=== PATIENT | male | born 1945 | race Caucasian/White ===

== ENCOUNTER 2017-02-01 11:06 | Inpatient (IN) | payer MEDICARE, OTHER ==
--- NOTE | ~2017-02-01 | OP ---
Record Of Operation [facility] [address] [place]. [address] NAME: LADI DILLON : 49 STATUS : ADM IN PAT#: [id number] AGE: 71 ADM/REG DATE : 02/01/17 MR#: [id number] REPORT SERV DATE: 02/05/17 DICTATED BY: IAIN IRAHETA III DATE: 02/05/17 REPORT STATUS : Draft TRANSCRIBED BY: MODL DATE: 02/05/17 DATE OF PROCEDURE: 02/05/2017 PROCEDURE: Cystoscopy, TURBT. PREOPERATIVE DIAGNOSIS: Bladder tumor. POSTOPERATIVE DIAGNOSIS: Bladder tumor ANESTHESIA: General. SURGEON: Iain Iraheta M.D. PROCEDURE IN DETAIL: Following induction of adequate general anesthesia, the patient placed in dorsal lithotomy position, prepped and draped in a sterile fashion. The urethra was normal. The prostate had several small clots. There was no active bleeding. There was one small clot in the bladder which was evacuated. The visualization was excellent. The tumor appeared to begin at approximately 1 o'clock inside the bladder wall and came down to approximately the 4 o'clock position. There was visible tumor on the floor of the bladder, superior to the ureteral orifice. I put the resectoscope in and with pressure was able to reach all but the very most cephalad portion of the tumor with approximately 5 mm from the tip of the lip. With pressure I was able to resect the lip of the tumor and I shaved it down close to but not into the bladder wall. There were some papillary elements on the fringes of the tumor, however, the tumor itself was solid with some necrotic areas. I resected all tissue that looked as if it might bleed, i.e. the papillary portion which had not been resected previously. Hemostasis was excellent. There was a small amount of bleeding at the bladder neck. This was cauterized. A 24 three-way was inserted and irrigated clearly. He tolerated the procedure well. Blood loss was minimal, actually probably less than 150 mL. IMPRESSION: Impression is that of a solid tumor, almost certainly invasive. He will probably require a cystectomy since the tumor was not isolated to the lateral wall. Some of the areas on the base of the bladder were shaved almost to the 6 o'clock position above the left ureteral orifice and what was clearly tumor. OB/MODL Iain Iraheta III, M.D. / [id number] CC: Sulaiman Brown III, PA-C
--- NOTE | ~2017-02-01 | DS ---
Discharge Summary [address] [place]. [address] NAME: LADI DILLON : 49 STATUS : ADM IN [facility]#: [id number] AGE: 71 ADM/REG DATE : 02/01/17 MR#: [id number] REPORT SERV DATE: 02/06/17 DICTATED BY: IAIN IRAHETA III DATE: 02/06/17 REPORT STATUS : Draft TRANSCRIBED BY: MODL DATE: 02/06/17 ADMISSION DATE: 02/01/2017 DISCHARGE DATE: 02/06/2017 DISCHARGE DIAGNOSIS: Clot retention and bladder tumor. PROCEDURE: Clot evacuation and cysto TURBT. HISTORY OF PRESENT ILLNESS: The patient is a 71-year-old, who was referred to al approximately a week before admission. He was having gross hematuria. A CT showed a 5- to 6-cm left bladder mass with no hydronephrosis, no clear-cut adenopathy. He presented on 02/01/2017 bleeding, in pain, and distended. He was brought to [facility] for a clot evacuation. PAST MEDICAL HISTORY: Includes elevated cholesterol, hypothyroidism, and asthma. MEDICATIONS: Crestor, Synthroid, and Tricor. PAST SURGICAL HISTORY: He has had a tonsillectomy. No other surgery. FAMILY HISTORY: Unremarkable. ALLERGIES: HAD NO ALLERGIES. HOSPITAL COURSE: The patient was taken to the operating room and an extensive clot evacuation was done. His prostate was noted to be significantly enlarged and was bleeding by the time the clot evacuation could be completed. Bladder tumor was partially resected, however, bleeding from the prostate forced me to place a 3-way catheter and allow this bleeding to stop. He was given 2 units of packed cells and his hemoglobin came up to approximately [address] The urine cleared. 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 There was some muscle present that was not involved. The tumor actually was quite bulky and some of it appeared solid. On the initial resection, there was an area where the involvement was less extensive, and this had been one area that did bleed significantly during the resection. He was taken back to the operating room on the , visualization was excellent. Due to the lack of bleeding, the tumor was resected into completely solid mass. There was really no distinction between bladder wall and tumor, so I did not try to remove it in its entirety. There were also mucosal changes in the tumor in the urothelium extending toward the base of the bladder; this was resected but unfortunately got mixed in with the tumor specimen itself and was not sent separately. The tumor was pretty much avascular once all the superficial papillary areas were removed, it was with deep palpation I could feel a firmness, but it was mobile, and I could not be sure this was a tumor, certainly it was not fixed. Bleeding was minimal, and on the day of discharge, the urine was clear off CBI, he was comfortable, and felt to be okay for discharge. His creatinine was 1.1. Hemoglobin was 10.3. I explained to the patient that this is going to be invasive cancer. This is a solid sessile mass and would discuss cystectomy and diversion to this to some extent. He will be sent home with this catheter Discharge Summary [address] [place]. [address] NAME: LADI DILLON : 49 STATUS : ADM IN PAT#: [id number] AGE: 71 ADM/REG DATE : 02/01/17 MR#: [id number] REPORT SERV DATE: 02/06/17 DICTATED BY: IAIN IRAHETA III DATE: 02/06/17 REPORT STATUS : Draft TRANSCRIBED BY: MODL DATE: 02/06/17 and will be removed in 48 hours. OB/MODL Iain Iraheta III, M.D. / [id number] CC: Sulaiman Brown III, PA-C
--- NOTE | ~2017-02-01 | OP ---
Record Of Operation [facility] [address] [place]. [address] NAME: LADI DILLON : 49 STATUS : ADM IN PAT#: [id number] AGE: 71 ADM/REG DATE : 02/01/17 MR#: [id number] REPORT SERV DATE: 02/01/17 DICTATED BY: IAIN IRAHETA III DATE: 02/01/17 REPORT STATUS : Draft TRANSCRIBED BY: MODL DATE: 02/01/17 DATE OF PROCEDURE: 02/01/2017 PROCEDURE: Cystoscopy, clot evacuation, and TURBT. PREOPERATIVE DIAGNOSIS: Clot retention and bladder mass. POSTOPERATIVE DIAGNOSIS: Clot retention and bladder mass. ANESTHESIA: General. SURGEON: Iain Iraheta M.D. DESCRIPTION OF PROCEDURE: Following induction of adequate general anesthesia, the patient was placed in the dorsal lithotomy position, prepped and draped in a sterile fashion. The urethra was normal. The prostate was quite large with an upsloping bladder neck and a median lobe. Bladder was full of organized clot. I passed a 25 sheath and immediately got a couple 100 mL of clot. I then switched to Ellik. I then tried to look and simply could not see any bladder mucosa. I continued to irrigate with Ellik and eventually could not pull any more clot out. I did a cystogram and I took a look at it again and there was formed clot in the middle of the bladder. I then placed a 26 and ultimately a 28 sheath and the Ellik simply would not pull the clot out. I tried removing it with the loop but it appeared to be 1 or 2 well-formed congealed clot. I then got a Kwesi hematuria catheter placed in and with that I could get all the way up to the top of the bladder and irrigated for approximately 30 minutes getting quite a bit of clot. Another look in the bladder revealed some loose clot. This was evacuated with a 26 sheath. The prostate was oozing somewhat. The bladder was examined as best I could. The dome was difficult to see the posterior wall. I could see well with the bladder collapsed and the right lateral wall had no tumor. I did not visualize the left ureteral orifice, however, on the CT, it was not covered by the tumor. The tumor appeared to be papillary and solid. There was a good bit of encrustation which was very difficult to resect. Even with a significant amount of pressure on the scope, the loop would not extend to the most cephalad portion of the tumor. There were areas in the tumor that were bleeding and I felt I needed to resect those rather than simply fulgurate, so I resected the mid portion of the tumor. I did not try to get to the bladder wall since the tumor looks solid. There were several significant bleeders high on the distal portion of the tumor. I could not really tell if I was looking the bladder wall or tumor and scraped off some of the clot and fulgurated these heavily. All the clots and chips were evacuated. I then observed the tumor for 5 to 10 minutes. There was only really an ooze from the prostate. The bleeding areas were well coagulated. Unfortunately I could not reach the majority of the tumor and with the prostate bleeding more from multiple manipulations, I felt it best to place a catheter, put the catheter on traction and possibly take a second look first part of the week. A 24 Kwesi catheter was placed, it irrigated clear to light pink and he was placed on a 3/4 drip which produced a light pink color. When he awoke, he strained and the urine got lightly darker; however, it stopped fairly quickly and when he left for the recovery room, it was a light pink. He tolerated the procedure well. He received 1 unit of blood and the hemoglobin will be checked in the recovery room. Record Of Operation [address] [place]. [address] NAME: LADI DILLON : 49 STATUS : ADM IN [facility]#: [id number] AGE: 71 ADM/REG DATE : 02/01/17 MR#: [id number] REPORT SERV DATE: 02/01/17 DICTATED BY: IAIN IRAHETA III DATE: 02/01/17 REPORT STATUS : Draft TRANSCRIBED BY: MODL DATE: 02/01/17 OB/MODL Iain Iraheta III, M.D. / [id number] CC: Sulaiman Brown III, PA-C
[2017-02-01 12:00] LABS: BASOPHILS 0.1 %; BASOPHILS ABSOLUTE 0.01 10/3/uL (0.0-0.16); EOSINOPHILS 0.3 %; EOSINOPHILS ABSOLUTE 0.05 10/3/uL (0.0-0.53); HEMATOCRIT 30.4 % (40.0-51.0); HEMOGLOBIN 10.4 g/dL (13.6-17.8); IMMATURE GRANULOCYTES 0.3 %; IMMATURE GRANULOCYTES ABSOLUTE 0.04 10/3/uL (0.0-0.11); LYMPHOCYTES 10.5 %; LYMPHOCYTES ABSOLUTE 1.56 10/3/uL (0.67-4.30); MEAN CORPUS HGB CONC 34.2 g/dL (32.0-36.0); MEAN CORPUSCULAR VOLUME 87.6 fL (80-100); MEAN PLATELET VOLUME 8.3 fL (9.2-13.0); MONOCYTES 9.9 %; MONOCYTES ABSOLUTE 1.48 10/3/uL (0.21-1.20); NEUTROPHILS 78.9 %; NEUTROPHILS ABSOLUTE 11.78 10/3/uL (2.02-8.40); PLATELET COUNT 318 10/3/uL (150-400); RBC DISTRIBUTION WIDTH 13.9 % (12.0-16.0); RED CELL COUNT 3.47 10/6/uL (4.7-6.1); WHITE BLOOD CELLS 14.9 10/3/uL (4.5-10.5)
[2017-02-01 12:02] LABS: MANUAL DIFF NO %
[2017-02-01 12:23] LABS: BUN (BLOOD UREA NITROGEN) 23 MG/DL (6-23); CALCIUM, SERUM 9.3 MG/DL (8.5-10.4); CHLORIDE, SERUM 104 MMOL/L (96-112); CO2 (CARBON DIOXIDE) 26 MMOL/L (24-34); GFR AFRICAN AMERICAN 46 ML/MIN (>=60); GFR NON AFRICAN AMERICAN 40 ML/MIN (>=60); GLUCOSE, SERUM 178 MG/DL (60-99); POTASSIUM, SERUM 4.3 MMOL/L (3.5-5.3); SODIUM, SERUM 140 MMOL/L (135-148)
[2017-02-01 12:24] LABS: CREATININE 1.71 MG/DL (0.70-1.30)
[2017-02-01] MEDS ORDERED: LEVAQUIN5T PO (12:35)
[2017-02-01] MEDS ORDERED: *DENIES (12:36)
[2017-02-01 19:16] LABS: HEMATOCRIT 28.5 % (40.0-51.0)
[2017-02-01 19:28] LABS: BUN (BLOOD UREA NITROGEN) 25 MG/DL (6-23); CHLORIDE, SERUM 102 MMOL/L (96-112); CO2 (CARBON DIOXIDE) 24 MMOL/L (24-34); CREATININE 1.43 MG/DL (0.70-1.30); GFR AFRICAN AMERICAN 58 ML/MIN (>=60); GFR NON AFRICAN AMERICAN 50 ML/MIN (>=60); GLUCOSE, SERUM 213 MG/DL (60-99); POTASSIUM, SERUM 4.4 MMOL/L (3.5-5.3); SODIUM, SERUM 135 MMOL/L (135-148)
[2017-02-01 19:30] LABS: CALCIUM, SERUM 8.1 MG/DL (8.5-10.4)
[2017-02-02 05:42] LABS: BASOPHILS 0 %; EOSINOPHILS 0 %; HEMOGLOBIN 9.7 g/dL (13.6-17.8); IMMATURE GRANULOCYTES 0.3 %; IMMATURE GRANULOCYTES ABSOLUTE 0.03 10/3/uL (0.0-0.11); LYMPHOCYTES 5.9 %; LYMPHOCYTES ABSOLUTE 0.64 10/3/uL (0.67-4.30); MEAN CORPUS HGB CONC 34.6 g/dL (32.0-36.0); MEAN CORPUSCULAR HEMOGLOB 30.1 pg (26.0-34.0); MEAN PLATELET VOLUME 8.2 fL (9.2-13.0); MONOCYTES 6.4 %; MONOCYTES ABSOLUTE 0.69 10/3/uL (0.21-1.20); NEUTROPHILS 87.4 %; NEUTROPHILS ABSOLUTE 9.45 10/3/uL (2.02-8.40); PLATELET COUNT 244 10/3/uL (150-400); RBC DISTRIBUTION WIDTH 14.2 % (12.0-16.0); RED CELL COUNT 3.22 10/6/uL (4.7-6.1); WHITE BLOOD CELLS 10.8 10/3/uL (4.5-10.5)
[2017-02-02 05:43] LABS: MANUAL DIFF NO %
[2017-02-02 05:52] LABS: BUN (BLOOD UREA NITROGEN) 22 MG/DL (6-23); CALCIUM, SERUM 8.2 MG/DL (8.5-10.4); CHLORIDE, SERUM 106 MMOL/L (96-112); CO2 (CARBON DIOXIDE) 26 MMOL/L (24-34); GFR AFRICAN AMERICAN 71 ML/MIN (>=60); GFR NON AFRICAN AMERICAN 61 ML/MIN (>=60); GLUCOSE, SERUM 180 MG/DL (60-99); POTASSIUM, SERUM 4.2 MMOL/L (3.5-5.3); SODIUM, SERUM 140 MMOL/L (135-148)
[2017-02-03 06:26] LABS: BASOPHILS 0.1 %; BASOPHILS ABSOLUTE 0.01 10/3/uL (0.0-0.16); EOSINOPHILS 1.2 %; HEMATOCRIT 27.9 % (40.0-51.0); HEMOGLOBIN 9.5 g/dL (13.6-17.8); IMMATURE GRANULOCYTES 0.3 %; IMMATURE GRANULOCYTES ABSOLUTE 0.03 10/3/uL (0.0-0.11); LYMPHOCYTES 20.2 %; LYMPHOCYTES ABSOLUTE 1.74 10/3/uL (0.67-4.30); MEAN CORPUS HGB CONC 34.1 g/dL (32.0-36.0); MEAN CORPUSCULAR HEMOGLOB 29.9 pg (26.0-34.0); MEAN CORPUSCULAR VOLUME 87.7 fL (80-100); MEAN PLATELET VOLUME 8.3 fL (9.2-13.0); MONOCYTES 8.3 %; MONOCYTES ABSOLUTE 0.71 10/3/uL (0.21-1.20); NEUTROPHILS 69.9 %; NEUTROPHILS ABSOLUTE 6.01 10/3/uL (2.02-8.40); PLATELET COUNT 240 10/3/uL (150-400); RBC DISTRIBUTION WIDTH 14.4 % (12.0-16.0); RED CELL COUNT 3.18 10/6/uL (4.7-6.1); WHITE BLOOD CELLS 8.6 10/3/uL (4.5-10.5)
[2017-02-03 06:29] LABS: MANUAL DIFF NO %
[2017-02-03 06:35] LABS: BUN (BLOOD UREA NITROGEN) 15 MG/DL (6-23); CALCIUM, SERUM 7.8 MG/DL (8.5-10.4); CHLORIDE, SERUM 110 MMOL/L (96-112); CO2 (CARBON DIOXIDE) 27 MMOL/L (24-34); CREATININE 1.05 MG/DL (0.70-1.30); GFR AFRICAN AMERICAN 84 ML/MIN (>=60); GFR NON AFRICAN AMERICAN 72 ML/MIN (>=60); GLUCOSE, SERUM 126 MG/DL (60-99); POTASSIUM, SERUM 3.7 MMOL/L (3.5-5.3); SODIUM, SERUM 145 MMOL/L (135-148)
[2017-02-05 06:25] LABS: HEMATOCRIT 31.4 % (40.0-51.0); HEMOGLOBIN 10.7 g/dL (13.6-17.8)
[2017-02-06 05:03] LABS: BASOPHILS 0 %; EOSINOPHILS 0 %; HEMATOCRIT 30.4 % (40.0-51.0); HEMOGLOBIN 10.3 g/dL (13.6-17.8); IMMATURE GRANULOCYTES 0.2 %; IMMATURE GRANULOCYTES ABSOLUTE 0.02 10/3/uL (0.0-0.11); LYMPHOCYTES 5.8 %; MEAN CORPUS HGB CONC 33.9 g/dL (32.0-36.0); MEAN CORPUSCULAR HEMOGLOB 29.6 pg (26.0-34.0); MEAN CORPUSCULAR VOLUME 87.4 fL (80-100); MEAN PLATELET VOLUME 8.4 fL (9.2-13.0); MONOCYTES 3.8 %; MONOCYTES ABSOLUTE 0.33 10/3/uL (0.21-1.20); NEUTROPHILS 90.2 %; NEUTROPHILS ABSOLUTE 7.81 10/3/uL (2.02-8.40); RBC DISTRIBUTION WIDTH 13.6 % (12.0-16.0); RED CELL COUNT 3.48 10/6/uL (4.7-6.1); WHITE BLOOD CELLS 8.7 10/3/uL (4.5-10.5)
[2017-02-06 05:04] LABS: MANUAL DIFF NO %; PLATELET COUNT 336 10/3/uL (150-400)
[2017-02-06 05:07] LABS: CALCIUM, SERUM 8.3 MG/DL (8.5-10.4); CHLORIDE, SERUM 104 MMOL/L (96-112); CO2 (CARBON DIOXIDE) 26 MMOL/L (24-34); CREATININE 1.11 MG/DL (0.70-1.30); GFR AFRICAN AMERICAN 78 ML/MIN (>=60); GFR NON AFRICAN AMERICAN 67 ML/MIN (>=60); SODIUM, SERUM 139 MMOL/L (135-148)
[2017-02-06 05:10] LABS: BUN (BLOOD UREA NITROGEN) 11 MG/DL (6-23); GLUCOSE, SERUM 264 MG/DL (60-99)
[2017-02-06] MEDS ORDERED: NORCO1 TA1 PO (09:14)
[2017-05-20] MEDS ORDERED: *DENIES (06:28)
[2017-05-25] MEDS ORDERED: K500 PO (09:14)
[2017-05-28] MEDS ORDERED: [UNRECOGNIZED DRUG - OTHER] PO (14:39)
[2017-06-18] MEDS ORDERED: NORCO1 TA1 PO (13:19)
== END 2017-02-06 12:17 | disposition home or self-care (01) | DRG 669 ==
LOC: 4SO 11:06
PROVIDERS: Urology
DX: C67.3 Malignant neoplasm of anterior wall of bladder (principal); N13.8 Other obstructive and reflux uropathy; K21.9 Gastro-esophageal reflux disease without esophagitis; J45.909 Unspecified asthma, uncomplicated; E03.9 Hypothyroidism, unspecified; N40.0 Benign prostatic hyperplasia without lower urinary tract symptoms; Z79.82 Long term (current) use of aspirin; E78.5 Hyperlipidemia, unspecified; G47.33 Obstructive sleep apnea (adult) (pediatric); E78.00 Pure hypercholesterolemia, unspecified; K59.00 Constipation, unspecified
CPT/HCPCS: 36415; 71020; 80048; 85014; 85018; 85025; 86850; 86900; 86901; 86920; 88307; 93005; A9270-GY; J0290; J2250; J2270; J2370; J2405; J2710; J3010; P9016; Q9967

== ENCOUNTER 2017-02-09 06:08 | Inpatient (IN) | payer MEDICARE, OTHER ==
--- NOTE | ~2017-02-09 | DS ---
Discharge Summary [facility] [address] [place]. [address] NAME: LADI DILLON : 49 STATUS : DIS IN PAT#: [id number] AGE: 71 ADM/REG DATE : 02/10/17 MR#: [id number] REPORT SERV DATE: 02/22/17 DICTATED BY: SWAPNIL GARCIA DATE: 02/21/17 REPORT STATUS : Draft TRANSCRIBED BY: MODJoel DATE: 02/21/17 Data Collection from hospitalization DISCHARGE DIAGNOSES: 1. Bladder cancer. 2. Hypercholesterolemia. 3. Hypothyroidism. 4. Asthma. 5. Hematuria. CONSULTATIONS: Dr. Eugenio Dalal, Dr. Nikolai Guillaume. PROCEDURES PERFORMED: 1. CT kidney stone protocol, 02/09/2017. 2. CT cystogram, 02/09/2017. 3. CT of the abdomen and pelvis without contrast, 02/10/2017. 4. Ileal conduit formation with ileoileostomy, 02/12/2017. 5. Laparoscopic robot assisted radical cystoprostatectomy, 02/12/2017. PATHOLOGY: 1. Fluid from cul-de-sac for cytology, ThinPrep, negative for malignancy. 2. Left ureter excision, no dysplasia or carcinoma seen, margin free. Right ureter excision, no dysplasia or carcinoma seen, margin free. Bladder and prostate cystoprostatectomy, bladder invasive urothelial carcinoma. Prostate and seminal vesicles, prostatic acinar adenocarcinoma. Left pelvic lymph nodes excision, one lymph node free of tumor. Right pelvic lymph nodes excision, one lymph node free of tumor. Left ureter excision, no dysplasia or carcinoma seen. Right ureter excision, no dysplasia or carcinoma seen. MEDICATIONS: [place] 5/325 one every four hours as needed. CONDITION AT DISCHARGE: Upon discharge, he did appear to be doing well and had no complaints. DISPOSITION: He was discharged home to continue a regular diet with activity as discussed. He was to call my office for a followup appointment. Home health care was in place upon discharge. HOSPITAL COURSE: This 71-year-old male was a patient of Dr. Iain Boothe. He had recently been diagnosed with high-volume, high-grade muscle invasive bladder cancer. Ultimately, a cystectomy was planned. He had had two TURBT and clot evacuation procedures in the last week. This second was performed on 02/05/2017, again large volume of bladder tumor was noted here. He was actually discharged with the Garcia catheter at that time and his catheter was removed in Dr. Carver's office on the day prior to admission. Following removal of the catheter, he was able to void reasonably well, but then developed debilitating pelvic and abdominal pain and felt ill. Ultimately, he was brought to the emergency room on the day of admission with these complaints. He denied any fever at home. He denied any nausea or vomiting at home. On arrival to the emergency room, he was found to Discharge [address] [address] NAME: LADI DILLON : 49 STATUS : DIS IN PAT#: [id number] AGE: 71 ADM/REG DATE : 02/10/17 MR#: [id number] REPORT SERV DATE: 02/22/17 DICTATED BY: SWAPNIL GARCIA DATE: 02/21/17 REPORT STATUS : Draft TRANSCRIBED BY: MODJoel DATE: 02/21/17 have an elevated white count of 16 and dirty-appearing urine and noncontrast CT of the abdomen and pelvis was performed, which showed some fluid in the retroperitoneal space with fluid and air bubbles along the right and superior to the bladder as well. The bladder itself was asymmetric with a suggestion of an infiltrating bladder wall mass, primarily extraperitoneal fluid, extravasations was noted. Following this, a CT cystogram was obtained, which showed a small bladder perforation on the right side anteriorly with minimal extravasation of air and contrast into the retroperitoneum, extravascular space only. In light of these findings, he was admitted for supportive care and further treatment. Upon admission to the hospital, he had been placed on an n.p.o. diet. He was begun on Dilaudid at 0.5-1 mg IV every two hours as needed and Zofran 4 mg IV every four hours as needed. He did undergo the above CT kidney stone protocol as well as CT cystogram while in the emergency room. Following the day of admission, he had a temperature of 100.2. He did state that he had felt constipated. His vital signs were stable. His abdomen was noted to be soft with some very mild tenderness in the right lower and right upper quadrant. His urine looked clear. He was continued on Levaquin and also begun on vancomycin. He was placed on Dulcolax as well as Colace. He did undergo the above CT of the abdomen and pelvis without contrast. On 02/11/2017, he did appear to be comfortable and his urine had remained clear. I initially saw the patient on 02/11/2017 and a laparoscopic robotic assisted radical cystoprostatectomy with ileal conduit was recommended. Neoadjuvant chemotherapy and urinary diversion types were discussed with the patient, and because his recent perforation was now clinically stable, it was recommended he proceed straight to surgery, not to neoadjuvant chemotherapy. He had also been seen prior to surgery by Dr. Nikolai Guillaume. He was to be available for the urinary conduit formation. He discussed the risks and benefits with the patient as well and the patient was agreeable to proceed. On 02/12/2017, he had been taken to the operating room by myself and Dr. Nikolai Guillaume, where he did undergo the above procedure. He tolerated this well and was transferred to the recovery room. On postop day 1, he was afebrile and his vital signs were stable. He did have some complaints of abdominal pain. He did have a good appetite and his wound looked good. His diet was being slowly advanced. On postop day #2, he continued to do well and had no new complaints. IV fluids were discontinued as were antibiotics. On postop day 3, he had a temperature of 99, and his vital signs had remained stable. His drain site was noted to be leaking. He did continue in stable condition, and as he continued to do well, he was then discharged on 02/16/2017 with the above instructions. Information collected by: Jane LeonIGopalT. I submit the above information as my discharge summary. LUIZ/MARGOT Swapnil Garcia M.D. / [id number] CC: Sulaiman Brown III, PA-C Discharge Summary [address] [address] NAME: LADI DILLON : 49 STATUS : DIS IN PAT#: [id number] AGE: 71 ADM/REG DATE : 02/10/17 MR#: [id number] REPORT SERV DATE: 02/22/17 DICTATED BY: SWAPNIL GARCIA DATE: 02/21/17 REPORT STATUS : Draft TRANSCRIBED BY: MARGOT DATE: 02/21/17 Nikolai Guillaume M.D.
--- NOTE | ~2017-02-09 | OP ---
Record Of Operation [facility] [address] [place]. [address] NAME: LADI DILLON : 49 STATUS : ADM IN PAT#: [id number] AGE: 71 ADM/REG DATE : 02/10/17 MR#: [id number] REPORT SERV DATE: 02/12/17 DICTATED BY: NIKOLAI WOODARD DATE: 02/12/17 REPORT STATUS : Draft TRANSCRIBED BY: MODL DATE: 02/12/17 DATE OF PROCEDURE: 02/12/2017 PREOPERATIVE DIAGNOSIS: Bladder cancer with perforation and hematuria. POSTOPERATIVE DIAGNOSIS: Bladder cancer with perforation and hematuria. PROCEDURE: Ileal conduit formation with ileoileostomy. SURGEON: Nikolai Woodard M.D. ASSISTANTS: Dr. Kidd and Isauro. COMPLICATIONS: None. DRAINS: None. ESTIMATED BLOOD LOSS: 20 mL. OPERATIVE TECHNIQUE: The patient had a previous cysto prostatectomy robotically and the patient's abdomen was then opened under the direction of Dr. Kidd. At that time, exploratory laparotomy revealed no adhesions of the ileum and the small bowel was identified at the cecal junction and approximately 12-15 cm proximally, a mesenteric rent was made in the mesenteric border using electrocautery. The mesentery was divided perpendicularly under direct visualization with electrocautery through the mesentery and the vessels were divided with the LigaSure as they were encountered. Approximately 10 cm, the mesentery was divided on the distal segment. At this point, about 18 cm was measured proximally and an additional mesenteric rent was obtained in the mesentry. At this point, the GORDO stapler was used to divide the intervening segment which was allowed to drop into the pelvis with a 75 mm linear stapler. It was marked with sutures for both distal ileoileostomy and for the conduit. At this point, the two small bowel segments were reanastomosed with a 75 mm stapler. The bowel ends were reapproximated and the enterotomies were made, and the stapler was inserted and positioned with the full length of a 75 mm stapler. It was then fired and the staple line was oversewn with interrupted 3-0 Lembert sutures prior to removal. The anastomosis was noted to be widely patent and Allis clamps were used only at the bowel and closed the ileoileostomy common channel with a 75 mm stapler. The suture line was oversewn with interrupted 3-0 Lembert sutures. It was widely patent and the mesenteric defect was left intact until the ureters were reimplanted. The intervening conduit segment was viable at which time, Dr. Kidd resumed the procedure. He tolerated this portion of the procedure well. MARIE/MARGOT Nikolai Record Of Operation [place] [id number] [facility] [address] NAME: LADI DILLON : 49 STATUS : ADM IN [facility]#: [id number] AGE: 71 ADM/REG DATE : 02/10/17 MR#: [id number] REPORT SERV DATE: 02/12/17 DICTATED BY: INKOLAI WOODARD DATE: 02/12/17 REPORT STATUS : Draft TRANSCRIBED BY: MARGOT DATE: 02/12/17 Sulaiman Woodard / [id number] CC: Sulaiman Brown III, PA-C
--- NOTE | ~2017-02-09 | CN ---
Consultation Report [facility] [address] [place]. [address] NAME: LADI DILLON : 49 STATUS : ADM IN [facility]#: [id number] AGE: 71 ADM/REG DATE : 02/10/17 MR#: [id number] REPORT SERV DATE: 02/12/17 DICTATED BY: NIKOLAI WOODARD DATE: 02/11/17 REPORT STATUS : Draft TRANSCRIBED BY: MODL DATE: 02/11/17 SURGICAL CONSULTATION DATE OF CONSULTATION: 02/11/2017 HISTORY OF PRESENT ILLNESS: This is a 71-year-old gentleman has had hematuria that did not respond to outpatient antibiotic therapy. He was recently evaluated in the emergency department with progressive hematuria, and was noted to have a high-volume, high-grade muscle invasive bladder cancer. A cystectomy is planned. He has had two clot evacuation procedures in the past week at which time, he was noted to have the tumor. He was followed outpatient and had a catheter that was removed prior to his admission on 02/09/2017. After removal, he was unable to void, and he was subsequently admitted to the hospital and was noted to have leukocytosis with a CT scan that revealed infiltrating bladder wall mass with fluid in the retroperitoneal space of air bubbles along the right superior aspect of the bladder consistent with perforation. Cystogram confirmed this. I was asked to see the patient for assistance with urinary conduit formation for his surgery planned tomorrow. PAST MEDICAL HISTORY: Hypothyroidism, hypercholesterolemia, and asthma. MEDICATIONS: He states he does not take any medications but Synthroid, Crestor, and TriCor is reported. SURGICAL HISTORY: No previous abdominal surgery. ALLERGIES: NO KNOWN DRUG OR LATEX ALLERGIES. SOCIAL HISTORY: The patient denies alcohol, tobacco, or illicit drug usage. 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 FAMILY HISTORY: Negative for bladder or urinary cancer. Family history of hypertension. REVIEW OF SYSTEMS: No headache, blurred vision, dizziness, chest pain, shortness of breath, cough, dyspnea on exertion, syncope, palpitations, jaundice, itching, bright red blood per rectum, or melena. He does have a hematuria. PHYSICAL EXAMINATION: GENERAL: Obese male, in no apparent distress. NECK: Supple. No adenopathy. CARDIOVASCULAR: Regular rate and rhythm without murmur. RESPIRATORY: Clear to auscultation. ABDOMEN: Soft, nondistended, and non-tender. No masses. BACK: No CVA tenderness. EXTREMITIES: No clubbing, cyanosis, edema. Consultation Report [place] [id number] [place]. [address] NAME: LADI DILLON : 49 STATUS : ADM IN PAT#: [id number] AGE: 71 ADM/REG DATE : 02/10/17 MR#: [id number] REPORT SERV DATE: 02/12/17 DICTATED BY: NIKOLAI WOODARD DATE: 02/11/17 REPORT STATUS : Draft TRANSCRIBED BY: MARGOT DATE: 02/11/17 SKIN: No jaundice. ASSESSMENT: 1. Bladder cancer with leak. 2. Obesity. PLAN: We will be available for urinary conduit formation. I discussed the potential for bleeding, infection, and the need for further surgical intervention, and he wished to proceed. He has previously discussed the risks, benefits, and alternatives of cystectomy with Dr. Kidd. /MARGOT Nikolai Woodard M.D. / [id number] CC: Sulaiman Brown III, PA-C Donald Hartsfield, D.O.
--- NOTE | ~2017-02-09 | CN ---
Consultation Report [facility] [address] [facility] [place]. [address] NAME: LADI BARAJAS : 49 STATUS : ADM IN PAT#: [id number] AGE: 71 ADM/REG DATE : 02/10/17 MR#: [id number] REPORT SERV DATE: 02/11/17 DICTATED BY: SWAPNIL GARCIA DATE: 02/11/17 REPORT STATUS : Draft TRANSCRIBED BY: MODL DATE: 02/11/17 CONSULTATION DATE OF CONSULTATION: 02/11/2017 REASON FOR CONSULTATION: Invasive bladder cancer. IMPRESSION: 1. 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 2. Bladder perforation. RECOMMENDATIONS: Laparoscopic robot-assisted radical cystoprostatectomy with ileal conduit. I discussed neoadjuvant chemotherapy and I discussed urinary diversion types. Because of the recent perforation which is now clinically stable I would proceed straight to surgery not to neoadjuvant chemotherapy. The patient is not interested in a continent diversion. DISCUSSION: Mr. Barajas is a 71-year-old male who had a transurethral resection of a bladder tumor, which was high grade invasive and large volume. He developed postoperative urinary retention, hematuria, and recently was diagnosed with a perforation on the right lateral wall. It is an extraperitoneal perforation. Pathology report given to me by Dr. Carver was of a high-grade invasive TCC. The patient is clinically doing well. He is hungry. He is n.p.o. He had low-grade temperature recently. He is on antibiotics. PAST MEDICAL HISTORY: Negative. MEDICATIONS: Levaquin. SOCIAL HISTORY: He denies drug, alcohol, or tobacco abuse. PHYSICAL EXAMINATION: GENERAL: Shows a well-developed, well-nourished white male, in no acute distress. VITAL SIGNS: He is presently afebrile. His vital signs are stable. HEENT: Sclerae anicteric. NECK: Supple. LUNGS: Clear. HEART: Regular rate and rhythm. ABDOMEN: Soft, nontender. No palpable abdominal masses. No hepatosplenomegaly. : Penis has a catheter in place. No inguinal hernia. Testes are descended. Nontender. No masses. LOWER EXTREMITY: No deformities. STUDIES: White blood cell count was 18,000, hemoglobin was 9.6, hematocrit 28. Creatinine 0.93. I reviewed the CT scan done yesterday. Consultation Report [address] [address] NAME: LADI BARAJAS : 49 STATUS : ADM IN PAT#: [id number] AGE: 71 ADM/REG DATE : 02/10/17 MR#: [id number] REPORT SERV DATE: 02/11/17 DICTATED BY: SWAPNIL GARCIA DATE: 02/11/17 REPORT STATUS : Draft TRANSCRIBED BY: MODJoel DATE: 02/11/17 PF/MARGOT Swapnil Garcia M.D. / [id number] CC: Sulaiman Brown III, PA-C
--- NOTE | ~2017-02-09 | HP ---
History And Physical [facility] [address] [place]. [address] NAME: LADI DILLON : 49 STATUS : DIS IN PAT#: [id number] AGE: 71 ADM/REG DATE : 02/10/17 MR#: [id number] REPORT SERV DATE: 02/25/17 DICTATED BY: LENA BOOTH DATE: 02/09/17 REPORT STATUS : Draft TRANSCRIBED BY: MODL DATE: 02/09/17 DATE OF ADMISSION: 02/09/2017 HISTORY: This is a 71-year-old white male, who is a patient of Dr. Iain Carver. He has recently been diagnosed with high-volume, high-grade, muscle-invasive bladder cancer. Ultimately, a cystectomy is planned. He has had two TURBT and clot evac procedures in the last week. The second was performed on 02/05/2017, again large volume of bladder tumor was noted here. He was actually discharged with a Kidd catheter at that time, and his catheter was removed yesterday in Dr. Carver's office. Following removal of the catheter, he was able to void reasonably well but developed debilitating pelvic and abdominal pain and felt ill. Ultimately he was brought to the emergency room early this morning with these complaints. He denied any fevers at home. Denied any nausea or vomiting at home. On arrival in the emergency room, he was found to have an elevated white count of 16 and dirty- appearing urine. A noncontrast CT of the abdomen and pelvis was performed, which showed some fluid in the retroperitoneal space with fluid and air bubbles along the right and superior to the urinary bladder as well. The bladder itself was asymmetric with a suggestion of an infiltrating bladder wall mass. Primarily, extraperitoneal fluid extravasation was noted. Following this, a CT cystogram was obtained, which showed a small bladder perforation on the right side anteriorly with minimal extravasation of air and contrast into the retroperitoneum/extravesical space only. In light of the above findings, the patient has been admitted for supportive care. OTHER MEDICAL HISTORY: Includes hypercholesterolemia, hypothyroidism, and asthma. MEDICATIONS: Home medications were previously charted to include Synthroid, Crestor, and Tricor. SURGICAL HISTORY: Includes only remote tonsillectomy. ALLERGIES: HE HAS NO ALLERGIES. PHYSICAL EXAMINATION: GENERAL: He is a very pleasant, white male, no distress, alert, oriented, and conversive. VITAL SIGNS: He is afebrile, blood pressure is 170/76, pulse is 60. HEENT: Pupils equal, round, and reactive. Extraocular movements intact. Oropharynx clear. NECK: Supple. No adenopathy. LUNGS: Clear. HEART: Regular. ABDOMEN: Soft. The bladder is not palpable. There is mild tenderness in the suprapubic region and both lower quadrants, right greater than left. There is very mild discomfort to right back on palpation. He says this is all improved. GENITOURINARY: A Kidd catheter was inserted this morning and he has had 750 mL of output. Penis is normal with a Kidd catheter indwelling. The urine is clear appearing. Testes, epididymitis, spermatic cords, and scrotum are all normal. Prostate was not examined. EXTREMITIES: No cyanosis or edema. History And Physical [address] [address] NAME: LADI DILLON : 49 STATUS : DIS IN PAT#: [id number] AGE: 71 ADM/REG DATE : 02/10/17 MR#: [id number] REPORT SERV DATE: 02/25/17 DICTATED BY: LENA BOOTH DATE: 02/09/17 REPORT STATUS : Draft TRANSCRIBED BY: MARGOT DATE: 02/09/17 LABORATORY VALUES: Urinalysis showed greater than 180 red cells and 65 white cells per high- power field. BUN and creatinine are 20 and 1.55 respectively. Liver functions are normal. Alkaline phosphatase is 102, white cell count 16.1, H and H 10.7 and 32.1, platelet count 339. Pathology from recent surgeries was reviewed revealing high-grade, muscle-invasive urothelial carcinoma. IMPRESSION: 1. High-grade, muscle-invasive, large-volume bladder cancer status post TURBT x2 in the last week or so. 2. Bladder rent with extravesical extravasation of urine into the perivesical and retroperitoneal space. On CT cystogram, only a small amount of extravasation was noted into the perivesical space and no intraperitoneal extravasation was noted. 3. Possible urinary tract infection. 4. Recent enterococcus urinary tract infection. 5. Abdominal and pelvic pain. Greatly improved following Kidd catheter placement. PLAN: We will admit for observation, supportive care, serial labs, etc. We will leave his Kidd in place and see how he does clinically. We will check a urine culture. We will go ahead and start antibiotic coverage with Levaquin. Hopefully, his bladder rent will close spontaneously with bladder decompression. JAKE/MARGOT Lena Booth M.D. / [id number] CC: Iain Carver III, M.D.
--- NOTE | ~2017-02-09 | OP ---
Record Of Operation [facility] [address] [place]. [address] NAME: LADI BARAJAS : 49 STATUS : ADM IN PAT#: [id number] AGE: 71 ADM/REG DATE : 02/10/17 MR#: [id number] REPORT SERV DATE: 02/13/17 DICTATED BY: SWAPNIL GARCIA DATE: 02/12/17 REPORT STATUS : Draft TRANSCRIBED BY: MODL DATE: 02/12/17 DATE OF PROCEDURE: 02/12/2017 PREOPERATIVE DIAGNOSIS: Transitional cell carcinoma of the bladder, clinical stage T2 Nx Mx. OTHER DIAGNOSIS: Bladder perforation, duration unknown. PROCEDURES: 1. Laparoscopic robot-assisted radical cystoprostatectomy. 2. Ileal conduit. SURGEON: Swapnil Garcia M.D. BSA/AML COMPLIANCE OFFICER: Rocky Gray. ANESTHESIA: General and TAP block. Please note, Dr. Nikolai Guillaume harvested the small bowel and did the ileo-ileal anastomosis. ESTIMATED BLOOD LOSS: 300 mL. FLUID REPLACEMENT: 2 L of crystalloid. DRAINS: 15 mm Masoud drain in the pelvis and a 6-Mauritian externalized urinary diversion stents. INDICATION: Mr. Barajas is a 71-year-old male with invasive bladder cancer. He was also had a recent bladder perforation. FINDINGS: Abscess in the right retroperitoneal space, tracking up along next to the right ureter with some purulence. The patient also had a perforated bladder at the right posterolateral wall. TECHNIQUE: The patient was identified, brought to the operating room, administered general anesthetic agent by the Anesthesia Service, intubated. He was positioned into the dorsal lithotomy position, appropriately padded, and secured to the table. The abdomen had previously been clipped. The entire abdomen, penis, groin, scrotum, and perineum were prepped and draped in the usual sterile fashion. A 16-Mauritian Garcia catheter was passed into the bladder and left for drainage. A 3-cm skin incision was made above the umbilicus and carried down through subcutaneous tissue to expose the rectus fascia. The Chas technique was used to introduce a balloon trocar into the peritoneal space. A pneumoperitoneum was created. The abdominal pressure raised to 15 mmHg and held there through the entire case until otherwise specified. I then placed robot arm port at the marking spot of the ileal conduit in the right lateral quadrant. I put two robot arm ports in the left lower quadrant, 12-mm catering assistant port in the right lower quadrant, and a 5-mm catering assistant port in the Record Of Operation [address] [place]. [address] NAME: LADI BARAJAS : 49 STATUS : ADM IN PAT#: [id number] AGE: 71 ADM/REG DATE : 02/10/17 MR#: [id number] REPORT SERV DATE: 02/13/17 DICTATED BY: SWAPNIL GARCIA DATE: 02/12/17 REPORT STATUS : Draft TRANSCRIBED BY: MODL DATE: 02/12/17 right upper quadrant. Once all ports were in position, da Jodie robot was brought to the table and mated to the ports. I began by mobilizing the sigmoid colon. I incised the avascular line with line of Toldt and mobilized the sigmoid colon off the retroperitoneum. There was quite a bit of dense and edematous soft tissue. The posterior perineum was quite thickened. There was actually some fluid down in the cul-de-sac. This was taken up with a trocar with a syringe and it was sent for cytology. I opened the posterior perineum and exposed the left and right ureters all the way down to the superior vesicle pedicles. I then incised the peritoneum just lateral to the median umbilical ligaments on each side, all the way to the vasa deferentia bilaterally. I mobilized the bladder off the anterior abdominal wall and lateral pelvic side wall. This was where I encountered the abscess. The obturator nerves were identified. I opened the cul-de-sac and exposed the seminal structures. The blood supply of the seminal vesicles were secured with locking clips and divided. The superior vesical pedicle was secured with locking clips and then divided. I opened the Denonvilliers fascia, swept the rectum off the undersurface of the prostate. I then took the obliterated umbilical ligaments and the vasa deferentia with locking clips and divided. I then used the laparoscopic GORDO stapling device, stapled along the pedicles of the bladder all the way out to the posterior pedicles of the prostate. I then divided the median umbilical ligaments and urachus near the umbilicus. I dissected out in the space of Retzius. I opened the endopelvic fascia along the prostate sharply. I took out all the way out to the puboprostatic ligaments bilaterally. The dorsal venous complex was isolated and secured with laparoscopic GORDO stapling device. I oversewed the dorsal venous complex with 0 PDS. The urethra was isolated and divided sharply. A posterior striated sphincter was divided sharply. Last attachments of the prostate to the neurovascular bundles were taken off sharply. The specimen was now completely freed up. It was placed in a specimen retrieval bag and held for later retrieval. Lower the abdominal pressure down to 7 mmHg and held it there for 5 minutes. I irrigated the pelvis copiously and sucked it dry. I oversewed part of the left neurovascular bundle for bleeding. I divided the ureters and taken the frozen sections from the ureters that came back as negative. Holding sutures were placed in the ureters. The left ureter mobilized all the way up above the iliac vessels and the right ureter up to about the iliac vessels. I then passed left ureter under the sigmoid mesentery, brought it into the right lower quadrant. A 15-mm Masoud drain was placed through the left lower quadrant port and left in the pelvis, and the drain was sutured to the skin with 2-0 Prolene. I then sampled lymph nodes from the left and right external iliac and obturator fossas. I would have done more, but there was quite a bit of adherent thick tissue over the vessels and felt there was risk of serious injury. I undocked da Jodie robot, brought strings of the specimen bags out through the umbilical port. I opened the skin and the fascia along the left side of the umbilicus from the port Record Of Operation [address] [address] NAME: LADI BARAJAS : 49 STATUS : ADM IN PAT#: [id number] AGE: 71 ADM/REG DATE : 02/10/17 MR#: [id number] REPORT SERV DATE: 02/13/17 DICTATED BY: SWAPNIL GARCIA DATE: 02/12/17 REPORT STATUS : Draft TRANSCRIBED BY: MODL DATE: 02/12/[address] down to approximately 4 cm below the umbilicus. I then delivered the specimens out through this wound. At this point, Dr. Guillaume came in and isolated a 20 cm segment of small bowel in the terminal ileum for me. He did his ileo-ileal anastomosis. When he was completed, I oversewed the staple end of the ileal conduit proximally and excised the staple end distally. I irrigated the conduit island copiously with saline. I then made fenestrations at the base of the conduit sharply. I everted the mucosa with 4-0 chromic. I trimmed off excess ureters on the both left and right side and did ureteroileal anastomosis using interrupted 4-0 chromic and 4-0 Vicryl sutures. Before completing the anastomosis, I placed urinary diversion stents through the conduit and up the ureters bilaterally. The right ureter stent was cut on an angle. I then placed the conduit down into the butt end of the conduit down into the right lower quadrant of the abdomen. I excised the ellipse of skin where the port had been. I carried this all the way down to the fascia. A crucifix incision was made in the fascia, I brought the distal end of the conduit out through the new ostomy. I anchored the conduit onto the fascia with four quadrant 2-0 Vicryl sutures. I everted the mucosa, anchored the skin to the mucosa of the conduit with 4-0 chromic suture. The lap and instrument count were correct. I closed the 12-mm catering assistant port fascia with 0 Vicryl UR-6. I then closed the midline fascia with running 0 PDS. The subcutaneous tissue was irrigated copiously and closed with 3-0 Vicryl. The skin of all ports was closed with 4 0 Monocryl as well as midline incision. Appliance was applied and dressings were applied. The patient was awakened and taken to recovery unit in stable and satisfactory condition. PF/MODL Swapnil Garcia M.D. / [id number] CC: Sulaiman Brown III, PA-C
[~2017-02-09 06:08] MED LIST: *DENIES; LEVAQUIN5T PO; NORCO1 TA1 PO
[2017-02-09 06:20] LABS: BASOPHILS 0.1 %; BASOPHILS ABSOLUTE 0.01 10/3/uL (0.0-0.16); EOSINOPHILS 0.4 %; EOSINOPHILS ABSOLUTE 0.07 10/3/uL (0.0-0.53); HEMATOCRIT 32.1 % (40.0-51.0); HEMOGLOBIN 10.7 g/dL (13.6-17.8); IMMATURE GRANULOCYTES 0.4 %; IMMATURE GRANULOCYTES ABSOLUTE 0.06 10/3/uL (0.0-0.11); LYMPHOCYTES 5.2 %; LYMPHOCYTES ABSOLUTE 0.84 10/3/uL (0.67-4.30); MEAN CORPUS HGB CONC 33.3 g/dL (32.0-36.0); MEAN CORPUSCULAR HEMOGLOB 28.7 pg (26.0-34.0); MEAN CORPUSCULAR VOLUME 86.1 fL (80-100); MEAN PLATELET VOLUME 8.1 fL (9.2-13.0); MONOCYTES 5.2 %; MONOCYTES ABSOLUTE 0.83 10/3/uL (0.21-1.20); NEUTROPHILS 88.7 %; NEUTROPHILS ABSOLUTE 14.26 10/3/uL (2.02-8.40); PLATELET COUNT 339 10/3/uL (150-400); RBC DISTRIBUTION WIDTH 13.4 % (12.0-16.0); RED CELL COUNT 3.73 10/6/uL (4.7-6.1)
[2017-02-09 06:23] LABS: ER CBC TAT 0 Hrs 12 Mins; MANUAL DIFF NO %; WHITE BLOOD CELLS 16.1 10/3/uL (4.5-10.5)
[2017-02-09 06:37] LABS: A/G RATIO 0.8 (0.7-1.9); ALBUMIN 3.3 G/DL (3.5-5.0); ALKALINE PHOSPHATASE 102 U/L (45-117); CALCIUM, SERUM 8.2 MG/DL (8.5-10.4); CHLORIDE, SERUM 106 MMOL/L (96-112); CO2 (CARBON DIOXIDE) 23 MMOL/L (24-34); CREATININE 1.55 MG/DL (0.70-1.30); GFR AFRICAN AMERICAN 52 ML/MIN (>=60); GFR NON AFRICAN AMERICAN 45 ML/MIN (>=60); GLOBULIN 3.9 G/DL (2.5-4.1); SGOT(AST) 27 U/L (5-40); SGPT(ALT) 20 U/L (5-65); SODIUM, SERUM 140 MMOL/L (135-148); TOTAL BILIRUBIN 0.7 MG/DL (0-1.2); TOTAL PROTEIN 7.2 G/DL (6.0-8.5)
[2017-02-09 06:38] LABS: BUN (BLOOD UREA NITROGEN) 20 MG/DL (6-23); GLUCOSE, SERUM 202 MG/DL (60-99)
[2017-02-09 08:10] LABS: ASCORBIC ACID (UR NOT ORDER) NEG (NEG); BILIRUBIN, URINE NEGATIVE (NEG); ER URINALYSIS TAT 0 Hrs 10 Mins; KETONE, URINE TRACE MG/DL (NEG); LEUKOCYTE ESTERASE(NOT OR MOD (NEG); NITRITE (URINE) POS (NEG); WBC (NOT ORDERED) (RFLEX) 65 (0-5)
[2017-02-10 05:22] LABS: BASOPHILS 0.1 %; BASOPHILS ABSOLUTE 0.01 10/3/uL (0.0-0.16); EOSINOPHILS 0.5 %; HEMOGLOBIN 9.6 g/dL (13.6-17.8); IMMATURE GRANULOCYTES 0.5 %; IMMATURE GRANULOCYTES ABSOLUTE 0.09 10/3/uL (0.0-0.11); LYMPHOCYTES 5.7 %; LYMPHOCYTES ABSOLUTE 1.07 10/3/uL (0.67-4.30); MEAN CORPUS HGB CONC 33.8 g/dL (32.0-36.0); MEAN CORPUSCULAR HEMOGLOB 29.4 pg (26.0-34.0); MEAN CORPUSCULAR VOLUME 86.9 fL (80-100); MEAN PLATELET VOLUME 8.4 fL (9.2-13.0); MONOCYTES 5.7 %; MONOCYTES ABSOLUTE 1.08 10/3/uL (0.21-1.20); NEUTROPHILS 87.5 %; NEUTROPHILS ABSOLUTE 16.45 10/3/uL (2.02-8.40); PLATELET COUNT 311 10/3/uL (150-400); RBC DISTRIBUTION WIDTH 13.6 % (12.0-16.0); RED CELL COUNT 3.27 10/6/uL (4.7-6.1); WHITE BLOOD CELLS 18.8 10/3/uL (4.5-10.5)
[2017-02-10 05:24] LABS: HEMATOCRIT 28.4 % (40.0-51.0); MANUAL DIFF NO %
[2017-02-10 05:34] LABS: CALCIUM, SERUM 8.3 MG/DL (8.5-10.4); CHLORIDE, SERUM 106 MMOL/L (96-112); CO2 (CARBON DIOXIDE) 26 MMOL/L (24-34); POTASSIUM, SERUM 3.9 MMOL/L (3.5-5.3); SODIUM, SERUM 141 MMOL/L (135-148)
[2017-02-10 05:35] LABS: BUN (BLOOD UREA NITROGEN) 13 MG/DL (6-23); CREATININE 0.93 MG/DL (0.70-1.30); GFR AFRICAN AMERICAN 97 ML/MIN (>=60); GFR NON AFRICAN AMERICAN 83 ML/MIN (>=60); GLUCOSE, SERUM 154 MG/DL (60-99)
[2017-02-11 07:01] LABS: BASOPHILS 0 %; EOSINOPHILS 0.9 %; EOSINOPHILS ABSOLUTE 0.12 10/3/uL (0.0-0.53); HEMOGLOBIN 9.1 g/dL (13.6-17.8); IMMATURE GRANULOCYTES 0.5 %; IMMATURE GRANULOCYTES ABSOLUTE 0.06 10/3/uL (0.0-0.11); LYMPHOCYTES 8.5 %; LYMPHOCYTES ABSOLUTE 1.11 10/3/uL (0.67-4.30); MEAN CORPUS HGB CONC 33.7 g/dL (32.0-36.0); MEAN PLATELET VOLUME 8.1 fL (9.2-13.0); MONOCYTES 8.3 %; MONOCYTES ABSOLUTE 1.08 10/3/uL (0.21-1.20); NEUTROPHILS 81.8 %; NEUTROPHILS ABSOLUTE 10.65 10/3/uL (2.02-8.40); PLATELET COUNT 262 10/3/uL (150-400); RBC DISTRIBUTION WIDTH 13.9 % (12.0-16.0); RED CELL COUNT 3.14 10/6/uL (4.7-6.1)
[2017-02-11 07:16] LABS: BUN (BLOOD UREA NITROGEN) 11 MG/DL (6-23); CALCIUM, SERUM 7.8 MG/DL (8.5-10.4); CHLORIDE, SERUM 108 MMOL/L (96-112); CO2 (CARBON DIOXIDE) 25 MMOL/L (24-34); CREATININE 0.69 MG/DL (0.70-1.30); GFR AFRICAN AMERICAN 112 ML/MIN (>=60); GFR NON AFRICAN AMERICAN 97 ML/MIN (>=60); GLUCOSE, SERUM 126 MG/DL (60-99); MANUAL DIFF NO %; POTASSIUM, SERUM 3.8 MMOL/L (3.5-5.3); SODIUM, SERUM 141 MMOL/L (135-148)
[2017-02-12 05:02] LABS: BASOPHILS 0.2 %; BASOPHILS ABSOLUTE 0.02 10/3/uL (0.0-0.16); EOSINOPHILS 1.2 %; EOSINOPHILS ABSOLUTE 0.14 10/3/uL (0.0-0.53); HEMATOCRIT 28.2 % (40.0-51.0); HEMOGLOBIN 9.1 g/dL (13.6-17.8); IMMATURE GRANULOCYTES 0.5 %; IMMATURE GRANULOCYTES ABSOLUTE 0.06 10/3/uL (0.0-0.11); LYMPHOCYTES 9.2 %; LYMPHOCYTES ABSOLUTE 1.06 10/3/uL (0.67-4.30); MEAN CORPUS HGB CONC 32.3 g/dL (32.0-36.0); MEAN CORPUSCULAR HEMOGLOB 28.3 pg (26.0-34.0); MEAN CORPUSCULAR VOLUME 87.6 fL (80-100); MEAN PLATELET VOLUME 8.5 fL (9.2-13.0); MONOCYTES 7.4 %; MONOCYTES ABSOLUTE 0.85 10/3/uL (0.21-1.20); NEUTROPHILS 81.5 %; NEUTROPHILS ABSOLUTE 9.38 10/3/uL (2.02-8.40); PLATELET COUNT 288 10/3/uL (150-400); RBC DISTRIBUTION WIDTH 13.6 % (12.0-16.0); RED CELL COUNT 3.22 10/6/uL (4.7-6.1); WHITE BLOOD CELLS 11.5 10/3/uL (4.5-10.5)
[2017-02-12 05:03] LABS: MANUAL DIFF NO %
[2017-02-12 05:28] LABS: CHLORIDE, SERUM 108 MMOL/L (96-112); CO2 (CARBON DIOXIDE) 22 MMOL/L (24-34); POTASSIUM, SERUM 3.7 MMOL/L (3.5-5.3); SODIUM, SERUM 141 MMOL/L (135-148)
[2017-02-12 05:29] LABS: BUN (BLOOD UREA NITROGEN) 8 MG/DL (6-23); CALCIUM, SERUM 7.5 MG/DL (8.5-10.4); CREATININE 0.62 MG/DL (0.70-1.30); GFR AFRICAN AMERICAN 117 ML/MIN (>=60); GFR NON AFRICAN AMERICAN 101 ML/MIN (>=60); GLUCOSE, SERUM 139 MG/DL (60-99)
[2017-02-13 04:43] LABS: BASOPHILS 0 %; EOSINOPHILS 0 %; HEMOGLOBIN 9.2 g/dL (13.6-17.8); IMMATURE GRANULOCYTES 0.5 %; IMMATURE GRANULOCYTES ABSOLUTE 0.07 10/3/uL (0.0-0.11); LYMPHOCYTES ABSOLUTE 0.55 10/3/uL (0.67-4.30); MEAN CORPUS HGB CONC 32.9 g/dL (32.0-36.0); MEAN CORPUSCULAR HEMOGLOB 28.5 pg (26.0-34.0); MEAN CORPUSCULAR VOLUME 86.7 fL (80-100); MEAN PLATELET VOLUME 8.8 fL (9.2-13.0); MONOCYTES 5.2 %; MONOCYTES ABSOLUTE 0.71 10/3/uL (0.21-1.20); NEUTROPHILS 90.3 %; NEUTROPHILS ABSOLUTE 12.36 10/3/uL (2.02-8.40); PLATELET COUNT 338 10/3/uL (150-400); RBC DISTRIBUTION WIDTH 13.7 % (12.0-16.0); RED CELL COUNT 3.23 10/6/uL (4.7-6.1); WHITE BLOOD CELLS 13.7 10/3/uL (4.5-10.5)
[2017-02-13 04:50] LABS: BUN (BLOOD UREA NITROGEN) 10 MG/DL (6-23); CALCIUM, SERUM 8.2 MG/DL (8.5-10.4); CHLORIDE, SERUM 110 MMOL/L (96-112); CO2 (CARBON DIOXIDE) 23 MMOL/L (24-34); CREATININE 0.79 MG/DL (0.70-1.30); GFR AFRICAN AMERICAN 106 ML/MIN (>=60); GFR NON AFRICAN AMERICAN 92 ML/MIN (>=60); POTASSIUM, SERUM 4.1 MMOL/L (3.5-5.3); SODIUM, SERUM 143 MMOL/L (135-148)
[2017-02-13 04:51] LABS: GLUCOSE, SERUM 184 MG/DL (60-99)
[2017-02-13 04:52] LABS: MANUAL DIFF NO %
[2017-02-14 05:22] LABS: BASOPHILS 0.1 %; BASOPHILS ABSOLUTE 0.01 10/3/uL (0.0-0.16); EOSINOPHILS 0.2 %; EOSINOPHILS ABSOLUTE 0.02 10/3/uL (0.0-0.53); HEMOGLOBIN 10.1 g/dL (13.6-17.8); IMMATURE GRANULOCYTES 0.4 %; IMMATURE GRANULOCYTES ABSOLUTE 0.05 10/3/uL (0.0-0.11); LYMPHOCYTES 9.6 %; LYMPHOCYTES ABSOLUTE 1.27 10/3/uL (0.67-4.30); MEAN CORPUS HGB CONC 32.7 g/dL (32.0-36.0); MEAN CORPUSCULAR HEMOGLOB 28.4 pg (26.0-34.0); MEAN CORPUSCULAR VOLUME 86.8 fL (80-100); MEAN PLATELET VOLUME 8.6 fL (9.2-13.0); MONOCYTES 6.9 %; MONOCYTES ABSOLUTE 0.91 10/3/uL (0.21-1.20); NEUTROPHILS 82.8 %; NEUTROPHILS ABSOLUTE 11.02 10/3/uL (2.02-8.40); PLATELET COUNT 361 10/3/uL (150-400); RBC DISTRIBUTION WIDTH 13.9 % (12.0-16.0); RED CELL COUNT 3.56 10/6/uL (4.7-6.1); WHITE BLOOD CELLS 13.3 10/3/uL (4.5-10.5)
[2017-02-14 05:27] LABS: HEMATOCRIT 30.9 % (40.0-51.0); MANUAL DIFF NO %
[2017-02-14 05:29] LABS: BUN (BLOOD UREA NITROGEN) 11 MG/DL (6-23); CALCIUM, SERUM 8.2 MG/DL (8.5-10.4); CHLORIDE, SERUM 109 MMOL/L (96-112); CO2 (CARBON DIOXIDE) 26 MMOL/L (24-34); CREATININE 0.83 MG/DL (0.70-1.30); GFR AFRICAN AMERICAN 104 ML/MIN (>=60); GFR NON AFRICAN AMERICAN 90 ML/MIN (>=60); GLUCOSE, SERUM 175 MG/DL (60-99); POTASSIUM, SERUM 3.9 MMOL/L (3.5-5.3); SODIUM, SERUM 144 MMOL/L (135-148)
[2017-02-15 04:56] LABS: BASOPHILS 0.1 %; BASOPHILS ABSOLUTE 0.01 10/3/uL (0.0-0.16); EOSINOPHILS ABSOLUTE 0.12 10/3/uL (0.0-0.53); HEMATOCRIT 30.3 % (40.0-51.0); HEMOGLOBIN 9.9 g/dL (13.6-17.8); IMMATURE GRANULOCYTES 0.5 %; IMMATURE GRANULOCYTES ABSOLUTE 0.06 10/3/uL (0.0-0.11); LYMPHOCYTES 10.9 %; LYMPHOCYTES ABSOLUTE 1.33 10/3/uL (0.67-4.30); MEAN CORPUS HGB CONC 32.7 g/dL (32.0-36.0); MEAN CORPUSCULAR HEMOGLOB 28.4 pg (26.0-34.0); MEAN CORPUSCULAR VOLUME 86.8 fL (80-100); MEAN PLATELET VOLUME 8.5 fL (9.2-13.0); MONOCYTES 6.2 %; MONOCYTES ABSOLUTE 0.75 10/3/uL (0.21-1.20); NEUTROPHILS 81.3 %; NEUTROPHILS ABSOLUTE 9.89 10/3/uL (2.02-8.40); PLATELET COUNT 357 10/3/uL (150-400); RBC DISTRIBUTION WIDTH 13.5 % (12.0-16.0); RED CELL COUNT 3.49 10/6/uL (4.7-6.1); WHITE BLOOD CELLS 12.2 10/3/uL (4.5-10.5)
[2017-02-15 05:03] LABS: MANUAL DIFF NO %
[2017-02-15 05:05] LABS: BUN (BLOOD UREA NITROGEN) 13 MG/DL (6-23); CALCIUM, SERUM 8.2 MG/DL (8.5-10.4); CHLORIDE, SERUM 108 MMOL/L (96-112); CO2 (CARBON DIOXIDE) 25 MMOL/L (24-34); CREATININE 0.73 MG/DL (0.70-1.30); GFR AFRICAN AMERICAN 110 ML/MIN (>=60); GFR NON AFRICAN AMERICAN 95 ML/MIN (>=60); POTASSIUM, SERUM 3.7 MMOL/L (3.5-5.3); SODIUM, SERUM 144 MMOL/L (135-148)
[2017-02-15 05:07] LABS: GLUCOSE, SERUM 138 MG/DL (60-99)
[2017-02-16] MEDS ORDERED: ZOFRAN4 PO (18:09)
[2017-05-20] MEDS ORDERED: *DENIES (06:28)
[2017-05-25] MEDS ORDERED: K500 PO (09:14)
[2017-05-28] MEDS ORDERED: [UNRECOGNIZED DRUG - OTHER] PO (14:39)
[2017-06-18] MEDS ORDERED: NORCO1 TA1 PO (13:19)
== END 2017-02-16 21:06 | disposition home health service (06) | DRG 655 ==
LOC: ER 06:08 → CDU1 08:22 → CDU2 08:38 → 4SO 12:15 → SDC/OF 02-12 16:37 → MIC 02-12 21:34 → 4SO 02-14 15:04
PROVIDERS: Specialist; Surgery; Urology
PROC: 0T1807C Bypass Bilateral Ureters to Ileocutaneous with Autologous Tissue Substitute, Open Approach (ICD-10-PCS; 2017-02-12)
PROC: 0DBB4ZZ Excision of Ileum, Percutaneous Endoscopic Approach (ICD-10-PCS; 2017-02-12)
PROC: 0D1B4ZB Bypass Ileum to Ileum, Percutaneous Endoscopic Approach (ICD-10-PCS; 2017-02-12)
PROC: 8E0W4CZ Robotic Assisted Procedure of Trunk Region, Percutaneous Endoscopic Approach (ICD-10-PCS; 2017-02-12)
PROC: 0VT00ZZ Resection of Prostate, Open Approach (ICD-10-PCS; principal; 2017-02-12 10:00)
PROC: 0TTB0ZZ Resection of Bladder, Open Approach (ICD-10-PCS; 2017-02-12 10:00)
DX: C67.2 Malignant neoplasm of lateral wall of bladder (principal); N30.81 Other cystitis with hematuria; N32.89 Other specified disorders of bladder; E78.00 Pure hypercholesterolemia, unspecified; E03.9 Hypothyroidism, unspecified; J45.909 Unspecified asthma, uncomplicated; E66.9 Obesity, unspecified; R33.8 Other retention of urine; B95.2 Enterococcus as the cause of diseases classified elsewhere
CPT/HCPCS: 36415; 71010; 72192; 74176; 80048; 80053; 80202; 81001; 82570; 82962; 83690; 83735; 85025; 86850; 86900; 86901; 86920; 87077; 87086; 87186; 87641; 88112; 88305; 88307; 88309; 88331; 96374; 99285; A9270-GY; C1751; C1769; C2617; J1170; J1956; J2250; J2370; J2405; J2710; J2795; J3010; J3370; P9045

== ENCOUNTER 2017-04-05 15:32 | Inpatient (IN) | payer MEDICARE, OTHER ==
--- NOTE | ~2017-04-05 | CN ---
Consultation Report [facility] [address] [place]. [address] NAME: LADI DILLON : 49 STATUS : ADM IN [facility]#: [id number] AGE: 71 ADM/REG DATE : 04/05/17 MR#: [id number] REPORT SERV DATE: 04/06/17 DICTATED BY: ORION CHRISTY DATE: 04/06/17 REPORT STATUS : Draft TRANSCRIBED BY: MODL DATE: 04/06/17 INFECTIOUS DISEASE CONSULTATION DATE OF CONSULTATION: 04/06/2017 REASON FOR CONSULTATION: Sepsis. HISTORY OF PRESENT ILLNESS: This is a 71-year-old man, who underwent radical cystoprostatectomy with ileal conduit on 02/12 for invasive bladder cancer. Since then, he has just felt somewhat poorly in general in his recovery. However, over the past week and a half or two, he has felt even worse and has developed some worsening anorexia, along with chills, weakness, and further weight loss. These symptoms brought him to the emergency department yesterday afternoon, where he was found to have a white blood cell count of 27,600 and pyuria and evidence of acute kidney injury with creatinine of 1.86. After blood and urine cultures were obtained, he was started on vancomycin and Zosyn. A CT scan was done of the abdomen and pelvis without IV contrast, which showed the postsurgical changes and a nonobstructing kidney stone in the right kidney, no hydronephrosis. One of two sets of admission blood cultures has returned positive for a gram-negative maryjo this morning, and his urine culture is growing greater than 100,000 colonies of a gram-negative maryjo. He does feel a little bit better today. He denies any abdominal pain. He admits to being dehydrated and not drinking too much. PAST MEDICAL HISTORY: In addition notable for asthma, hypothyroidism, hyperlipidemia. Pathology from his surgery also showed prostate cancer. ALLERGIES: NO KNOWN DRUG ALLERGIES. OUTPATIENT MEDICATIONS: Included just Synthroid, Crestor, and TriCor. SOCIAL HISTORY: Nonsmoker. Nondrinker. . Retired from [employer]. FAMILY HISTORY: Notable for heart disease in his father. REVIEW OF SYSTEMS: As outlined above, otherwise negative. PHYSICAL EXAMINATION: VITAL SIGNS: The patient weighs 88 kg. He is afebrile. Blood pressure 131/67, pulse 72, respiratory rate 16. GENERAL: He seems somewhat depressed, no acute distress. HEAD AND NECK: Show a clear oral cavity without thrush. LUNGS: Clear to auscultation. CARDIAC: Regular rate and rhythm without murmur, gallop, or rub. ABDOMEN: Nondistended, soft, nontender. Ileal conduit is present with collection bag in Consultation Report [facility] [address] [place]. [address] NAME: LADI DILLON : 49 STATUS : ADM IN PAT#: [id number] AGE: 71 ADM/REG DATE : 04/05/17 MR#: [id number] REPORT SERV DATE: 04/06/17 DICTATED BY: ORION CHRISTY DATE: 04/06/17 REPORT STATUS : Draft TRANSCRIBED BY: MODL DATE: 04/06/[address] place. EXTREMITIES: Show no rash or edema. NEUROLOGIC: Grossly intact. LABORATORY STUDIES: White blood cell count as mentioned; hemoglobin 10.1; platelets are 61,000 and they were 357,000 in February. Creatinine as mentioned 1.86, it was 0.73 on 02/15. Lactate 3.2. Alkaline phosphatase 215, other liver function tests normal. Microbiology studies as noted. CT scan as noted. Chest x-ray is negative. IMPRESSION: Gram-negative maryjo sepsis secondary to urinary tract infection in a patient with ileal conduit, status post radical cystoprostatectomy on 02/12 for bladder cancer. He also has acute kidney injury secondary to sepsis and dehydration and thrombocytopenia. PLAN: We will treat with cefepime pending final culture results. /MARGOT Orion Christy M.D. / [id number] CC: Sulaiman Ch PA-C Patrick Foley, M.D.
--- NOTE | ~2017-04-05 | HP ---
History And Physical [address] [address] NAME: LADI DILLON : 49 STATUS : ADM IN [facility]#: [id number] AGE: 71 ADM/REG DATE : 04/05/17 MR#: [id number] REPORT SERV DATE: 04/06/17 DICTATED BY: AMARA TRIPP DATE: 04/05/17 REPORT STATUS : Draft TRANSCRIBED BY: MODL DATE: 04/05/17 DATE OF ADMISSION: 04/05/2017 CHIEF COMPLAINT: A 71-year-old male with recent cystoprostatectomy and ileal conduit, now presenting with fevers, chills, weakness, and weight loss. HISTORY OF PRESENTING ILLNESS: The patient's history was obtained through careful interview with the patient and stepdaughter, coupled with review of [facility] and [facility] medical records. The patient has had recurrent bladder cancer and eventually had to undergo a cystoprostatectomy on 02/12/[address] Kidd with an ileal conduit. He actually recovered well from the surgery, but unfortunately has had a very poor appetite ever since undergoing the surgery. In total, he has lost 40 pounds since 02/2017. Over the last two weeks though, his symptoms have really progressed. He describes very poor appetite and nausea, but no vomiting. He has had chills, occasional fevers, increasing weakness, and finally, on the day of admission, he was so weak, he could not even get out of bed on his own. He has had a slight lower back discomfort without radiation, a pressure-like quality, 1/10 severity, but it is constant. No abdominal pain. No headache. No chest pain. No shortness of breath. No cough. No rash. He has had good output from his ileal conduit. REVIEW OF SYSTEMS: Otherwise, a 14-point review of systems was obtained and was negative. PAST MEDICAL HISTORY: 1. Bladder cancer, status post surgical resection. 2. Asthma. 3. Hypothyroidism. 4. Elevated cholesterol. 5. No cardiac disease. PAST SURGICAL HISTORY: 1. Cystoprostatectomy. 2. Ileal conduit. 3. TURBT. ALLERGIES: NO KNOWN DRUG ALLERGIES. SOCIAL HISTORY: No tobacco abuse. No alcohol abuse. He is , but is in poor History And Physical [address] [address] NAME: LADI DILLON : 49 STATUS : ADM IN PAT#: [id number] AGE: 71 ADM/REG DATE : 04/05/17 MR#: [id number] REPORT SERV DATE: 04/06/17 DICTATED BY: AMARA TRIPP DATE: 04/05/17 REPORT STATUS : Draft TRANSCRIBED BY: MODL DATE: 04/05/17 health and debilitated from fibromyalgia. He retired from [employer] in 2004. He has no biological children. FAMILY HISTORY: No cancer. Father with heart disease. Mother with Parkinson's disease. CURRENT MEDICATIONS: Synthroid, Crestor, TriCor. PHYSICAL EXAMINATION: VITAL SIGNS: Temperature 96.4, pulse 80, blood pressure 124/67, respiratory rate 22, O2 saturation 97% on room air. GENERAL: An ill-appearing male, in evidence of no significant distress though. HEENT: Pupils equal, round, and reactive to light. No conjunctival pallor. No scleral icterus. Nares are patent. Oropharynx is clear of obstruction. Very dry mucous membranes. NECK: Trachea midline. No thyromegaly. LYMPH: No cervical lymphadenopathy. No supraclavicular lymphadenopathy. No inguinal lymphadenopathy. RESPIRATORY: Clear to auscultation at bases. No wheezes, rales, or rhonchi. Normal respiratory effort. CARDIOVASCULAR: Regular rate and rhythm. No murmurs, rubs, or gallops. No extremity edema is appreciated. ABDOMEN: Completely soft by exam. Nontender throughout. No guarding. Nondistended. No hepatosplenomegaly. DERMATOLOGICAL: Warm and dry extremities. No pallor, no cyanosis. PSYCHIATRIC: Normal affect. Good mood. Alert and oriented x3. LABORATORY DATA: Lactic acid 3.2, albumin 2.5, INR 1.1, lipase 97, AST 27, ALT 16, alkaline phosphatase 215. White blood cell count 27.6, hemoglobin 10, hematocrit 30, platelets 61. Sodium 132, potassium 4.6, chloride 101, bicarb 22, BUN 71, creatinine 1.86 from baseline creatinine of 0.7, glucose 231. Urinalysis shows 72 red blood cells, 45 white blood cells, large leukocyte esterase. STUDIES: 1. Chest x-ray by my own evaluation shows no acute cardiopulmonary process. 2. EKG by my own evaluation shows sinus rhythm. No major abnormalities. 3. CT scan of the abdomen was reported as negative. ASSESSMENT AND PLAN: 1. Severe sepsis with lactic acid elevated at 3.2, tachypnea, and quite elevated white blood cell count with subjective fevers and chills. Unclear source. Negative CT scan of the abdomen. We will check urine culture. Check blood cultures. Place on IV vancomycin, IV Zosyn. Obtain Infectious Disease consult. 2. Ileal conduit. Consult Dr. Kidd, urologist. 3. A 40-pound weight loss. Check prealbumin. 4. Acute kidney injury. Place on IV fluids. 5. Hyperglycemia. Check hemoglobin A1c. Place on sliding scale insulin for now. Place on IV fluids and monitor. History And Physical [address] [address] NAME: LADI DILLON : 49 STATUS : ADM IN [facility]#: [id number] AGE: 71 ADM/REG DATE : 04/05/17 MR#: [id number] REPORT SERV DATE: 04/06/17 DICTATED BY: AMARA TRIPP DATE: 04/05/17 REPORT STATUS : Draft TRANSCRIBED BY: MARGOT DATE: 04/05/17 KPL/MARGOT ara Tripp M.D. / [id number] CC: Sulaiman Ch PA-C Patrick Foley, M.D.
--- NOTE | ~2017-04-05 | DS ---
Discharge Summary [id number] [place]. [address] NAME: LADI DILLON : 49 STATUS : DIS IN PAT#: [id number] AGE: 71 ADM/REG DATE : 04/05/17 MR#: [id number] REPORT SERV DATE: 04/08/17 DICTATED BY: KAELA PORTER DATE: 04/08/17 REPORT STATUS : Draft TRANSCRIBED BY: MODL DATE: 04/08/17 ADMISSION DATE: 04/05/2017 DISCHARGE DATE: 04/08/2017 PRINCIPAL DIAGNOSIS: Gram-negative sepsis due to Citrobacter in association with a UTI in the setting of ileal conduit, status post cystoprostatectomy. SECONDARY DIAGNOSES: Acute kidney injury, hypotension consistent with hypovolemic shock, thrombocytopenia due to sepsis, weight loss, failure to thrive, and iron deficiency anemia. HISTORY OF PRESENT ILLNESS: Please see Dr. Lemon's dictation on 04/05/2017. HOSPITAL COURSE: Admitted with severe illness with evidence of sepsis with urinary tract infection, hypertension, and acute kidney injury. The patient however responded to volume resuscitation and normalization of blood pressure. Renal function improved quickly. Thrombocytopenia however improved over the next several days. Urine culture was positive for Klebsiella. Blood culture positive for Citrobacter. He had responded well to intravenous antibiotics. Both organisms were highly sensitive and he was able to be changed back to ciprofloxacin with the blessing of Infectious Disease seen by both Dr. Kidd and Dr. Christy. The patient did really well and in fact, also improved his p.o. intake which had been very poor over the past several weeks with precipitous amount of weight loss. He had been started on Marinol with good success. He had moved his bowels well, and with the maximum benefit of hospitalization by 04/08/2017. He was released in satisfactory condition with diet as tolerated. Encouraged for protein shakes. Activity as tolerated. Following up with Dr. Ladi Urrutia in [address] Kidd is scheduled with Marinol 5 mg b.i.d., Cipro to complete two weeks of therapy plus his home medicines. It should be noted the patient also received intravenous iron during his hospitalization. DICTATED BY: Sulaiman Cochran/MARGOT Kaela Porter M.D. / [id number] CC: Sulaiman Cochran PA-C Patrick Foley, M.D. Hal Hill, M.D.
[~2017-04-05 15:32] MED LIST changes: +ZOFRAN4 PO
[2017-04-05 17:57] LABS: BASOPHILS 0.2 %; BASOPHILS ABSOLUTE 0.05 10/3/uL (0.0-0.16); EOSINOPHILS 0.7 %; EOSINOPHILS ABSOLUTE 0.19 10/3/uL (0.0-0.53); HEMATOCRIT 30.4 % (40.0-51.0); HEMOGLOBIN 10.1 g/dL (13.6-17.8); IMMATURE GRANULOCYTES 4.1 %; IMMATURE GRANULOCYTES ABSOLUTE 1.12 10/3/uL (0.0-0.11); LYMPHOCYTES 7.3 %; LYMPHOCYTES ABSOLUTE 2.01 10/3/uL (0.67-4.30); MEAN CORPUS HGB CONC 33.2 g/dL (32.0-36.0); MONOCYTES 7.5 %; MONOCYTES ABSOLUTE 2.06 10/3/uL (0.21-1.20); NEUTROPHILS 80.2 %; NUCLEATED RED BLOOD CELLS 0.1 /100WBC (0-0); RBC DISTRIBUTION WIDTH 15.7 % (12.0-16.0); RED CELL COUNT 4.15 10/6/uL (4.7-6.1)
[2017-04-05 17:59] LABS: INTERNATIONAL NORMAL RATI 1.1 UNITS (-); PROTIME (NOT ORD) 14.5 SEC (12.0-14.5)
[2017-04-05 18:00] LABS: ASCORBIC ACID (UR NOT ORDER) NEG (NEG); BILIRUBIN, URINE NEGATIVE (NEG); ER URINALYSIS TAT 0 Hrs 12 Mins; KETONE, URINE NEGATIVE (NEG); LEUKOCYTE ESTERASE(NOT OR LARGE (NEG); PARTIAL THROMBO TIME 31.1 SEC (22.5-37.2); WBC (NOT ORDERED) (RFLEX) 45 (0-5)
[2017-04-05 18:01] LABS: NITRITE (URINE) NEG (NEG)
[2017-04-05 18:04] LABS: ER CBC TAT 0 Hrs 16 Mins; MANUAL DIFF NO %; MEAN CORPUSCULAR HEMOGLOB 24.3 pg (26.0-34.0); MEAN CORPUSCULAR VOLUME 73.3 fL (80-100); PLATELET COUNT 61 10/3/uL (150-400); WHITE BLOOD CELLS 27.6 10/3/uL (4.5-10.5)
[2017-04-05 18:08] LABS: A/G RATIO 0.6 (0.7-1.9); ALBUMIN 2.5 G/DL (3.5-5.0); ALKALINE PHOSPHATASE 215 U/L (45-117); BUN (BLOOD UREA NITROGEN) 71 MG/DL (6-23); CALCIUM, SERUM 8.2 MG/DL (8.5-10.4); CHLORIDE, SERUM 101 MMOL/L (96-112); CO2 (CARBON DIOXIDE) 22 MMOL/L (24-34); CREATININE 1.86 MG/DL (0.70-1.30); GFR AFRICAN AMERICAN 42 ML/MIN (>=60); GFR NON AFRICAN AMERICAN 36 ML/MIN (>=60); GLOBULIN 4.5 G/DL (2.5-4.1); GLUCOSE, SERUM 231 MG/DL (60-99); POTASSIUM, SERUM 4.6 MMOL/L (3.5-5.3); SGOT(AST) 27 U/L (5-40); SGPT(ALT) 16 U/L (5-65); SODIUM, SERUM 132 MMOL/L (135-148); TOTAL BILIRUBIN 0.8 MG/DL (0-1.2)
[2017-04-05 18:09] LABS: LACTATE 3.2 MMOL/L (0.3-2.4)
[2017-04-05 18:26] LABS: BAND NEUTROPHILS 8 %; ER DIFF TAT 0 Hrs 38 Mins; LYMPHOCYTES 10 %; LYMPHOCYTES ABSOLUTE (CALC) 2.76 10/3/uL (0.67-4.30); MONOCYTES 8 %; MONOCYTES ABSOLUTE (CALC) 2.21 10/3/uL (0.21-1.20); NEUTROPHILS ABSOLUTE (CALC) 22.63 10/3/uL (2.02-8.40); SEGMENTED NEUTROPHIL (0) 74 %; TOTAL NUCLEATED CELLS 100
[2017-04-05 18:27] LABS: GIANT PLATELET RARE; PLATELET ESTIMATE DEC (ADEQUATE); SPHEROCYTES FEW (3-10/OIF)
[2017-04-05 18:28] LABS: OVALOCYTES 1+ (3-10/OIF) (0-2/OIF); SCHISTOCYTES OCC (0-2/OIF)
[2017-04-07 04:52] LABS: BASOPHILS 0.1 %; BASOPHILS ABSOLUTE 0.01 10/3/uL (0.0-0.16); EOSINOPHILS 1.4 %; EOSINOPHILS ABSOLUTE 0.15 10/3/uL (0.0-0.53); HEMOGLOBIN 8.6 g/dL (13.6-17.8); IMMATURE GRANULOCYTES 2.8 %; IMMATURE GRANULOCYTES ABSOLUTE 0.31 10/3/uL (0.0-0.11); LYMPHOCYTES 10.7 %; LYMPHOCYTES ABSOLUTE 1.17 10/3/uL (0.67-4.30); MEAN CORPUS HGB CONC 32.1 g/dL (32.0-36.0); MEAN CORPUSCULAR VOLUME 74.7 fL (80-100); MEAN PLATELET VOLUME 11.2 fL (9.2-13.0); MONOCYTES 5.1 %; MONOCYTES ABSOLUTE 0.56 10/3/uL (0.21-1.20); NEUTROPHILS 79.9 %; NEUTROPHILS ABSOLUTE 8.75 10/3/uL (2.02-8.40); RBC DISTRIBUTION WIDTH 15.7 % (12.0-16.0); RED CELL COUNT 3.59 10/6/uL (4.7-6.1); RETICULOCYTE COUNT 1.3 % (0.5-2.5); RETICULOCYTE COUNT ABSOLUTE 47.4 10/3/uL (20.2-119.8)
[2017-04-07 04:59] LABS: HEMATOCRIT 26.8 % (40.0-51.0); MANUAL DIFF NO %; PLATELET COUNT 112 10/3/uL (150-400)
[2017-04-07 05:04] LABS: % IRON SAT 14 % (20-50); CALCIUM, SERUM 8.2 MG/DL (8.5-10.4); CHLORIDE, SERUM 113 MMOL/L (96-112); CO2 (CARBON DIOXIDE) 20 MMOL/L (24-34); FERRITIN 89 NG/ML (26-388); IRON BINDING CAPACITY 265 MCG/DL (250-450); IRON, SERUM 36 MCG/DL (35-150); POTASSIUM, SERUM 4.5 MMOL/L (3.5-5.3)
[2017-04-07 05:05] LABS: BUN (BLOOD UREA NITROGEN) 38 MG/DL (6-23); CREATININE 1.13 MG/DL (0.70-1.30); GFR AFRICAN AMERICAN 76 ML/MIN (>=60); GFR NON AFRICAN AMERICAN 66 ML/MIN (>=60); GLUCOSE, SERUM 125 MG/DL (60-99); SODIUM, SERUM 141 MMOL/L (135-148)
[2017-04-07 05:24] LABS: PLATELET ESTIMATE SLT DEC (ADEQUATE)
[2017-04-07 05:25] LABS: RBC MORPHOLOGY NORM (NORMAL)
[2017-04-07 05:46] LABS: PROCALCITONIN 4.39 ng/mL (<0.5)
[2017-04-08 05:34] LABS: BASOPHILS 0 %; EOSINOPHILS 1.4 %; EOSINOPHILS ABSOLUTE 0.13 10/3/uL (0.0-0.53); HEMATOCRIT 26.8 % (40.0-51.0); HEMOGLOBIN 8.6 g/dL (13.6-17.8); IMMATURE GRANULOCYTES 2.1 %; LYMPHOCYTES 15.5 %; LYMPHOCYTES ABSOLUTE 1.48 10/3/uL (0.67-4.30); MEAN CORPUS HGB CONC 32.1 g/dL (32.0-36.0); MEAN CORPUSCULAR VOLUME 74.7 fL (80-100); MEAN PLATELET VOLUME 10.5 fL (9.2-13.0); MONOCYTES 5.2 %; NEUTROPHILS 75.8 %; NEUTROPHILS ABSOLUTE 7.26 10/3/uL (2.02-8.40); RBC DISTRIBUTION WIDTH 15.9 % (12.0-16.0); RED CELL COUNT 3.59 10/6/uL (4.7-6.1); WHITE BLOOD CELLS 9.6 10/3/uL (4.5-10.5)
[2017-04-08 05:35] LABS: MANUAL DIFF NO %; PLATELET COUNT 186 10/3/uL (150-400)
[2017-04-08 05:50] LABS: BUN (BLOOD UREA NITROGEN) 25 MG/DL (6-23); CALCIUM, SERUM 8.6 MG/DL (8.5-10.4); CHLORIDE, SERUM 111 MMOL/L (96-112); CO2 (CARBON DIOXIDE) 18 MMOL/L (24-34); CREATININE 1.01 MG/DL (0.70-1.30); GFR AFRICAN AMERICAN 88 ML/MIN (>=60); GFR NON AFRICAN AMERICAN 76 ML/MIN (>=60); GLUCOSE, SERUM 126 MG/DL (60-99); PHOSPHORUS, SERUM 2.4 MG/DL (2.5-4.5); POTASSIUM, SERUM 4.6 MMOL/L (3.5-5.3); SODIUM, SERUM 138 MMOL/L (135-148)
[2017-04-08] MEDS ORDERED: CIP5 PO (10:08)
[2017-04-08] MEDS ORDERED: MARI5 PO (10:09)
[2017-05-20] MEDS ORDERED: *DENIES (06:28)
[2017-05-25] MEDS ORDERED: K500 PO (09:14)
[2017-05-28] MEDS ORDERED: [UNRECOGNIZED DRUG - OTHER] PO (14:39)
[2017-06-18] MEDS ORDERED: NORCO1 TA1 PO (13:19)
== END 2017-04-08 16:04 | disposition home or self-care (01) | DRG 698 ==
LOC: ER 15:32 → 4SO 22:08
PROVIDERS: Hospitalist; Internal Medicine; Internal Medicine Infectious Disease
DX: T83.598A Infection and inflammatory reaction due to other prosthetic device, implant and graft in urinary system, initial encounter (principal); A41.89 Other specified sepsis; R57.1 Hypovolemic shock; R65.20 Severe sepsis without septic shock; N17.9 Acute kidney failure, unspecified; N39.0 Urinary tract infection, site not specified; Y83.2 Surgical operation with anastomosis, bypass or graft as the cause of abnormal reaction of the patient, or of later complication, without mention of misadventure at the time of the procedure; Y92.009 Unspecified place in unspecified non-institutional (private) residence as the place of occurrence of the external cause; Z85.51 Personal history of malignant neoplasm of bladder; Z90.6 Acquired absence of other parts of urinary tract; B96.1 Klebsiella pneumoniae [K. pneumoniae] as the cause of diseases classified elsewhere; R63.0 Anorexia; Z68.26 Body mass index [BMI] 26.0-26.9, adult; Z93.6 Other artificial openings of urinary tract status; J45.909 Unspecified asthma, uncomplicated; E03.9 Hypothyroidism, unspecified; E78.00 Pure hypercholesterolemia, unspecified; E78.5 Hyperlipidemia, unspecified; Z85.46 Personal history of malignant neoplasm of prostate; R62.7 Adult failure to thrive; K59.00 Constipation, unspecified
CPT/HCPCS: 71020; 74176; 80048; 80053; 81001; 82272; 82728; 82962; 83036; 83540; 83550; 83605; 83690; 83735; 84100; 84145; 85025; 85045; 85610; 85730; 87040; 87077; 87086; 87150; 87186; 93005; 96374; 99291; A9270-GY; J0692; J1750; J2543; J3370; P9047